=== PATIENT | male | born 1950 | race Asian ===

== ENCOUNTER 2016-05-10 08:10 | Inpatient (IN) | payer OTHER ==
[~2016-05-10] VITALS: Ht 180.3 cm; Wt 77.1 kg
[2016-05-10] VITALS (7 sets, daily range): BP systolic 130–140; BP diastolic 84–100
[2016-05-10] MEDS ORDERED: ASPIRIN/SOD BICARB/CITRIC ACID 324MG TAB EFF ONE (08:38)
[2016-05-10 09:24] LABS: HEMATOCRIT 32.3 % (42.0-52.0); HEMOGLOBIN 11.1 g/dL (14.0-18.0); MEAN CORPUSCULAR HEMOGLOBIN 31.9 pg (28.0-32.0); MEAN CORPUSCULAR HGB CONC 34.3 g/dL (31.0-37.0); PLATELET 216 x1000/uL (130-400); RED BLOOD CELL COUNT 3.47 mill/uL (4.7-6.1); RED CELL DISTRIBUTION WIDTH 14.7 % (11.6-14.6); WHITE BLOOD COUNT 6.3 x1000/uL (4.5-11.0)
[2016-05-10 09:34] LABS: PARTIAL THROMBOPLASTIN TIME 25.6 sec (24.0-34.0); PROTHROMBIN TIME 10.3 sec
[2016-05-10] MEDS ORDERED: MIDAZOLAM HCL 2 MG/2 ML VIAL ONE ×2 (10:20→10:35)
[2016-05-10] MEDS ORDERED: FENTANYL CITRATE/PF 50MCG/ML 2ML VIAL ONE (10:20)
[2016-05-10] MEDS ORDERED: HEPARIN SODIUM 1,000 UNIT/1ML VIAL IV ONE (10:21)
[2016-05-10] MEDS ORDERED: LIDOCAINE HCL 1% 20ML VIAL (Pyxis) INJ ONE (10:21)
[2016-05-10] MEDS ORDERED: IODIXANOL 320MG/ML 100 ML BOTTLE IV ONE (10:21)
[2016-05-10] MEDS ORDERED: ONDANSETRON HCL 4MG/2ML VIAL IV PRN (11:15)
[2016-05-10] MEDS ORDERED: ACETAMINOPHEN 325MG TABLET PO PRN (11:15)
[2016-05-10] MEDS ORDERED: ATROPINE SULFATE 1MG/10ML SYR IV PRN (11:15)
[2016-05-10] MEDS ORDERED: DEXTROSE 50% WATER 50ML SYRINGE IV PRN (11:15)
[2016-05-10] MEDS ORDERED: MORPHINE SULFATE 2 MG/ML CPJ (NOT FOR IM USE) IV PRN (11:15)
[2016-05-10] MEDS ORDERED: FURO-152 PO (11:41)
[2016-05-10] MEDS ORDERED: CILO100T PO (11:41)
[2016-05-10] MEDS ORDERED: INSU100I7 SQ (11:41)
[2016-05-10] MEDS ORDERED: LOSA50TA20 PO (11:41)
[2016-05-10] MEDS ORDERED: INSU3INS6 SQ (11:41)
[2016-05-10] MEDS ORDERED: ASPI-1035 PO (11:41)
[2016-05-10] MEDS ORDERED: CLOP75TA2 PO (11:41)
[2016-05-10] MEDS ORDERED: ALLO100T PO (11:41)
[2016-05-10] MEDS ORDERED: AMLO5TAB4 PO (11:41)
[2016-05-10] MEDS: INSULIN LISPRO 100 UNITS/ML SUBCUT SCH ×3 (12:29→22:14)
[2016-05-10] MEDS: BLOOD SUGAR DIAGNOSTIC STRIP TEST SCH ×3 (12:40→21:00)
[2016-05-10] MEDS: SODIUM CHLORIDE 0.45% 1,000 ML IV SCH (13:52)
[2016-05-10] MEDS: LOSARTAN POTASSIUM 25 MG TABLET PO SCH (22:15)
[2016-05-10] MEDS: CILOSTAZOL 100MG TABLET PO SCH (22:15)
[2016-05-11] VITALS: BP 133/84
[2016-05-11 04:00] VITALS: BP 148/85
[2016-05-11 05:49] LABS: BASOPHILS % 0.7 % (0.0-2.0); EOSINOPHILS % 2.5 % (0.0-5.0); HEMATOCRIT. 28.8 % (42.0-52.0); HEMOGLOBIN. 9.9 g/dL (14.0-18.0); LYMPHOCYTES % 20.1 % (20.0-50.0); MEAN CORPUSCULAR HEMOGLOBIN 31.6 pg (28.0-32.0); MEAN CORPUSCULAR HGB CONC 34.5 g/dL (31.0-37.0); MEAN CORPUSCULAR VOLUME 91.7 fL (80.0-94.0); MEAN PLATELET VOLUME 6.6 fl (7.4-10.4); MONOCYTES % 10.2 % (2.0-8.0); NEUTROPHILS % 66.5 % (40.0-76.0); PLATELET 202 x1000/uL (130-400); RED BLOOD CELL COUNT 3.14 mill/uL (4.7-6.1); RED CELL DISTRIBUTION WIDTH 14.4 % (11.6-14.6); WHITE BLOOD COUNT 5.9 x1000/uL (4.5-11.0)
[2016-05-11] MEDS: SODIUM CHLORIDE 0.45% 1,000 ML IV SCH (05:53)
[2016-05-11] MEDS: BLOOD SUGAR DIAGNOSTIC STRIP TEST SCH ×2 (05:57→11:45)
[2016-05-11] MEDS: INSULIN LISPRO 100 UNITS/ML SUBCUT SCH ×2 (05:58→12:15)
[2016-05-11 06:24] LABS: CALCIUM 8.1 mg/dL (8.5-10.1); MAGNESIUM 1.8 mg/dL (1.8-2.4); PHOSPHORUS 3.7 mg/dL (2.5-4.9)
[2016-05-11 08:00] VITALS: BP 155/95
[2016-05-11] MEDS ORDERED: ASPIRIN 81MG TABLET PO SCH (09:00)
[2016-05-11] MEDS ORDERED: AMLODIPINE 5MG TABLET PO SCH (09:00)
[2016-05-11] MEDS: LOSARTAN POTASSIUM 25 MG TABLET PO SCH (09:55)
[2016-05-11] MEDS: CILOSTAZOL 100MG TABLET PO SCH (09:55)
[2016-05-11 12:00] VITALS: BP 142/93
[2016-05-11 13:33] VITALS: BP 141/93
[2016-05-11] MEDS ORDERED: EPOETIN ALFA 4000UNITS/ML VIAL SUBCUT SCH (21:00)
== END 2016-05-11 15:30 | disposition home or self-care (01) | DRG 253 ==
LOC: CCL 08:10 → 5WST 08:11
PROVIDERS: ADMIT Specialist; ATTEND Specialist
PROC: B2111ZZ Fluoroscopy of Multiple Coronary Arteries using Low Osmolar Contrast (ICD-10-PCS; principal; 2016-05-10)
PROC: B41F1ZZ Fluoroscopy of Right Lower Extremity Arteries using Low Osmolar Contrast (ICD-10-PCS; 2016-05-10)
PROC: 04HH3DZ Insertion of Intraluminal Device into Right External Iliac Artery, Percutaneous Approach (ICD-10-PCS; 2016-05-10)
DX: E11.51 Type 2 diabetes mellitus with diabetic peripheral angiopathy without gangrene (principal); N17.9 Acute kidney failure, unspecified; N18.4 Chronic kidney disease, stage 4 (severe); I73.9 Peripheral vascular disease, unspecified; D64.9 Anemia, unspecified; E11.22 Type 2 diabetes mellitus with diabetic chronic kidney disease; E11.319 Type 2 diabetes mellitus with unspecified diabetic retinopathy without macular edema; E11.621 Type 2 diabetes mellitus with foot ulcer; I12.9 Hypertensive chronic kidney disease with stage 1 through stage 4 chronic kidney disease, or unspecified chronic kidney disease; I25.10 Atherosclerotic heart disease of native coronary artery without angina pectoris; I70.209 Unspecified atherosclerosis of native arteries of extremities, unspecified extremity; L97.519 Non-pressure chronic ulcer of other part of right foot with unspecified severity; M10.9 Gout, unspecified; N14.1 Nephropathy induced by other drugs, medicaments and biological substances; T50.8X5A Adverse effect of diagnostic agents, initial encounter; Z79.899 Other long term (current) drug therapy; Z82.49 Family history of ischemic heart disease and other diseases of the circulatory system; Z87.441 Personal history of nephrotic syndrome; Z79.82 Long term (current) use of aspirin; Z79.4 Long term (current) use of insulin
CPT/HCPCS: 36415; 71010; 75710; 80048; 82962; 83735; 84100; 85025; 85027; 85610; 85730; C1725; C1760; C1769; C1893; J1644; J1815; J2250; J3010; J3490; Q9967